=== PATIENT | female | born 1965 | race Caucasian/White ===

== ENCOUNTER 2016-12-16 07:14 | Day surgery (SDC) | payer OTHER ==
[~2016-12-16] VITALS: Ht 149.9 cm; Wt 57.6 kg
[~2016-12-16 07:14] MED LIST: NO MEDICATIONS
[2016-12-16 07:32] VITALS: BP 125/71; PULSE 92; RESP 14; O2SAT 99
[2016-12-16] MEDS ORDERED: fentaNYL-PF 50 mCg/mL 2 mL Inj ONE (07:43)
[2016-12-16] MEDS ORDERED: fentaNYL-PF 50 mCg/mL 2 mL Inj IVPUSH PRN (07:45)
[2016-12-16] MEDS ORDERED: Sodium Chloride LOK Flush 10 mL Syringe IV PRN (07:45)
[2016-12-16] MEDS ORDERED: 0.9% Sodium Chloride 1,000 ML IV PRN (07:45)
[2016-12-16 08:40] VITALS: BP 95/47; PULSE 67; RESP 14; O2SAT 94
--- NOTE | 2016-12-16 08:40 | PCM.ENDCOL ---
Colonoscopy Date of Service: December 16, 2016 Physician Pasquale Guan MD Pre Procedure Diagnosis: Screening father had colon cancer Post Procedure Dx & Findings: Polyps diverticuli poor prep in certain areas Procedure Colonoscopy PROCEDURE IN DETAIL: Prep poor in certain areas. There were seeds that clogged up the scope multiple times. After unremarkable rectal examination the Olympus video colonoscope was inserted patient's anal canal and was advanced to cecum. Landmarks were identified including the ileocecal valve and appendiceal orifice. Scope was withdrawn systematically. Visualized colonic mucosa showed healthy shiny mucosa with normal healthy-appearing vasculature. In the cecum, there was a 1 mm polyp which was removed completely using cold forceps. Isolated diverticuli from the sigmoid to the right colon. In the rectum retroflexion was done which showed hemorrhoids. Anal canal was inspected carefully on the way out and hemorrhoids noted. Impression Polyp 1 this was complete removal Isolated diverticuli Poor prep in certain areas. Hemorrhoids Recommendation Repeat colonoscopy 6 month with 2 weeks of a low residual diet. Diverticular diet. Presedation Assessment Risks and Benefits Informed consent was obtained from the patient after all risks and benefits including but not limited to drug reaction, infection, pain, bleeding, perforation, as well as alternatives were discussed. Patient monitoring Continuous pulse oximetry, cardiac monitoring, blood pressure monitoring, IV access, and oxygen at 2L per nasal cannula. Periprocedural Fentanyl: Fentanyl 100mcg Incrementally Midazolam: Midazolam 5mg Incrementally Complications There were no periprocedural complications identified. Post Procedure Plan Post Procedure Recommendations 1. Restrict activities today. 2. Resume normal activities in the morning. 3. Resume medications. 4. Patient informed of normal post procedure side effects as bloating, drowsiness, blood streaking in the stool. 5. average risk CRCS. If colon polyps come back as: -Hyperplastic- can repeat colonoscopy in 10 years -Tubular adenoma- repeat colonoscopy in 5 years -Tubulovillous/villous adenoma- repeat colonoscopy in 3 years -If any dysplasia- return to clinic as soon as possible 6. Please don't hesitate to call me with any questions. Pasquale Guan MD December 16, 2016 08:40
[2016-12-16 08:50] VITALS: BP 89/57; PULSE 75; RESP 16; O2SAT 99
[2016-12-16 09:02] VITALS: BP 88/58; PULSE 94; RESP 16; O2SAT 99
[2016-12-16 09:10] VITALS: BP 102/58; PULSE 77; RESP 16; O2SAT 100
--- NOTE | 2016-12-19 18:50 | PATH ---
SURGICAL PATHOLOGY Attending Physician:Pasquale Guan M.D. CASE STATUS: Signed Out PATIENT NAME: DAMIEN MARX PID: [id number] : 1965 DATE COLLECTED:12/16/2016 17:23 SPECIMEN: Colon, Biopsy CLINICAL HISTORY: 1). CECAL POLYP X1 FINAL DIAGNOSIS: Cecum, Polyp, Biopsy: Tubular adenoma; negative for high-grade dysplasia. ICD10: K63.5 GROSS DESCRIPTION: The specimen is received in one formalin filled container labeled with the patient's name, sublabeled "cecal polyp" and consists of a 0.2 x 0.2 x 0.2 CM portion of tissue which is entirely submitted in one cassette. 12/16/2016 [facility] ICD-9 CODES: CPT CODES: 1: 75520 Electronically Signed Out Roxy Sepulveda MD Merged With [facility], [place] [address] Technical component performed at [facility], [address] [place] [address] [address], [place], [address]
== END 2016-12-16 23:59 | disposition home or self-care (01) ==
LOC: END 07:14
PROVIDERS: ATTEND Internal Medicine
DX: Z12.11 Encounter for screening for malignant neoplasm of colon (principal); D12.0 Benign neoplasm of cecum; K57.30 Diverticulosis of large intestine without perforation or abscess without bleeding; K64.8 Other hemorrhoids; Z80.0 Family history of malignant neoplasm of digestive organs
CPT/HCPCS: 45380; 99153; G0500; J2250; J3010; J7030